=== PATIENT | female | born 1985 | race Two or more races ===

== ENCOUNTER 2024-05-01 10:07 | Emergency (ER) | payer OTHER ==
[~2024-05-01] VITALS: Ht 167.6 cm; Wt 63.5 kg
== END 2024-05-01 14:11 | disposition home or self-care (01) ==
LOC: ER 10:07
DX: S89.81XA Other specified injuries of right lower leg, initial encounter (principal); V03.99XA Pedestrian with other conveyance injured in collision with car, pick-up truck or van, unspecified whether traffic or nontraffic accident, initial encounter; Y93.89 Activity, other specified; Y92.413 State road as the place of occurrence of the external cause; Z91.013 Allergy to seafood